=== PATIENT | female | born 1970 | race African-American/Black ===

== ENCOUNTER 2019-07-17 00:42 | Day surgery (SDC) | payer BC, SELFPAY ==
--- NOTE | 2019-07-16 08:36 | PM.IMHP ---
H&P: HPI History of Present Illness Chief complaint: Right Rotator Cuff Tear Narrative: Presents with Right shoulder pain Dominant hand: right Current symptoms: Reports stiffness and weakness Character: constant Onset: 1-3 months *Chief Complaint Chief Complaint: see Reason for Visit (Right Shoulder ) Duration: months Severity: moderate Exacerbating/relieving factors: relieving factors: (Ice,Rest, NSAIDS ) Review of Systems Review of Systems: All systems reviewed & are unremarkable except as noted in HPI and below Constitutional: Constitutional: Denies headache(s) and Denies weakness Eyes: Eyes: Denies blurry vision, Denies change in vision and Denies loss of vision ENT: Denies dizziness, Denies dry mouth, Denies headache(s) and Denies nasal congestion Cardiovascular: Cardiovascular: Denies chest pain, Denies syncope, Denies leg edema and Denies dyspnea on exertion Respiratory: Respiratory: Denies cough and Denies dyspnea on exertion Gastrointestinal: Gastrointestinal: Denies abdominal pain, Denies constipation and Denies diarrhea Genitourinary: Genitourinary: Denies urinary frequency Musculoskeletal: Musculoskeletal: Reports as per HPI and Denies numbness Integumentary/Breasts: Skin/Breast: Reports system reviewed and no additional complaints, except as docu Neurologic: Denies dizziness, Denies syncope, Denies headache(s), Denies loss of vision, Denies numbness and Denies weakness Psychiatric: Psychiatric: Reports no additional psychiatric complaints Endocrine: Endocrine: Reports no additional endocrine complaints Hematologic/Lymphatic: Hematologic/Lymphatic: Reports no additional hematologic/lymphatic complaints COUNT INCLUDES THE [facility] Social History Social History Alcohol intake: current Meds Home Medications and Allergies Allergies Allergy/AdvReac Type Severity Reaction Status Date / Time No Known Allergies Allergy Unverified 05/11/19 13:01 Exam Narrative: Exam Narrative: Extrem Right upper extremity: normal to inspection, normal capillary refill, shoulder/upper arm (smooth rom. ) normal to inspection, tenderness, axillary nerve sensory function normal and abnormal ROM (rom RR 0 TO 160 DEG ABD 0 TO 160 DEG), elbow/forearm normal to inspection and hand normal to inspection and neuromotor exam normal; No cyanosis, edema or no joint enlargement Other: Shoulder exam Right Anterior apprehension negative Right relocation negative Right Anterior translation negative Right Posterior translation negative Right Inferior translation negative Left Anterior apprehension negative Left relocation negative Left Anterior translation negative Left Posterior translation negative Left Inferior translation negative Right positive Michelle's Right negative SLAP Right negative speed's test Righ negative yergason's Right negative belly press Right positive tellez Right positive cross body Right negative lift off test Right positive Neer's Left negative tellez Left negativge cross body Left negative lift off test Left negative Neer's Assessment and Plan Additional Plan FAVIOLA WAS SEEN FOR FOLLOW-UP FOR HER RIGHT SHOULDER ROTATOR CUFF PARTIAL TEAR SHE IS DOING ABOUT THE SAME AND SHE IS NOT IMPROVING WITH CONSERVATIVE TREATMENT. ACTUALLY SHE THINKS HER PAIN IS WORSE. ON EXAM SHE HAS CONTINUED TENDERNESS OVER THE GREATER TUBEROSITY AND SHE HAS PAIN WITH RESISTED ABDUCTION AND FORWARD FLEXION AND INTERNAL ROTATION. SHE IS NOT WANTING TO DO ANY OTHER FORMS OF CONSERVATIVE TREATMENT SHOULD WOULD LIKE TO GO AHEAD AND PROCEED WITH RIGHT ROTATOR CUFF REPAIR. WE HAD A LONG DISCUSSION REGARDING SURGERY INCLUDING THE POTENTIAL COMPLICATIONS AND RISKS. HE MAINLY SPOKE ABOUT RECURRENT TEAR INFECTION DVT PULMONARY EMBOLUS AND THE NEED FOR RECURRENT SURGERY. SHE WOULD LIKE TO GO AHEAD SCHEDULE RIGHT ROTATOR CUFF REPAIR.
[2019-07-16 10:13] VITALS: BMI 25.8
[2019-07-17] VITALS (8 sets, daily range): BP systolic 142–178; BP diastolic 84–99; PULSE 57–89; RESP 16–20; TEMP 36.2–37; O2SAT 96–100
--- NOTE | 2019-07-17 07:36 | WPDHPUPDATE1 ---
History and Physical Update Update Date/Time: 07/17/19 07:36 History and Physical has been reviewed, including an updated exam of the patient. There are NO changes in the patient's condition. Risks, benefits, and alternatives have been discussed and questions answered. Patient agrees to proceed with procedure.
[2019-07-17] MEDS: CELECOXIB 200 MG CAPSULE PO (08:20)
[2019-07-17] MEDS: LACTATED RINGERS 1,000 ML 30 ML IV CONT ×2 (08:25→11:52)
--- NOTE | 2019-07-17 08:52 | WPDANESEPPF ---
Anes - Initial Pre Proc Eval Procedure: Operation Date: 07/17/19 10:00 Proposed Procedures p Right Rotator Cuff Repair - Trevon Correa MD Date/Time: 07/17/19 08:52 Surgeon: Trevon Correa MD Pre Op Diagnosis: Right Rotator Cuff Tear Patient Data Age: 48 Gender: F Height: 1.68 m Weight: 70.8 kg Last Vital Signs Temp 37.0 C 07/17/19 08:08 Pulse 65 07/17/19 08:08 Resp 18 07/17/19 08:08 BP 155/84 H 07/17/19 08:08 Pulse Ox 100 07/17/19 08:08 Allergies Allergy/AdvReac Type Severity Reaction Status Date / Time No Known Allergies Allergy Unverified 07/17/19 08:27 Home Medications Medication Instructions Recorded Confirmed Type multivitamin 1 tablet PO DAILY 07/16/19 07/17/19 History omega 1-sda-ntg-fish oil [Fish Oil] 1 cap PO DAILY 07/16/19 07/17/19 History ferrous sulfate 27 mg PO DAILY 07/17/19 07/17/19 History vitamin B complex [B 1 tablet PO DAILY 07/17/19 07/17/19 History Complex-Vitamin B12] Patient hx anesthesia problems: none Family hx anesthesia problems: none PMFSH Social History Social History Alcohol intake: current Anes - Eval Final PreProcedure Day of Procedure 07/17/19 08:52 Patient weight: normal Heart: regular rate and rhythm Lungs: clear to auscultation and normal air movement Airway: Mallampati scale class II Neurological: alert and oriented Last oral intake: >/= 8 hours ASA classification: I Emergent: no Anesthetic plan: proceed Anesthesia type and monitoring: general ETT and standard monitoring Informed Consent: The patient's anesthetic plan and its attendant risks and benefits were discussed with the patient/family/POA. Questions were solicited and answers provided to the satisfaction of the patient/family/POA.
--- NOTE | 2019-07-17 08:53 | WPDANESPNB ---
Anes - Peripheral Nerve Block Date/Time: 07/17/19 08:53 I have discussed with the patient/family/POA the placement of a peripheral nerve block for post-operative pain management, including associated risks, benefits, complications, and side effects. Alternative methods of post-operative analgesia were detailed. Questions were solicited and answers provided to the satisfaction of the patient/family/POA. Time-Out: A pre-procedural Time-Out was completed immediately before starting the procedure and confirmed: Patient Identification, Site, Procedure, Patient Position and the Availability of Requisite Equipment. Clinical Indications: Acute post-operative pain management requested by the operative surgeon. Nerve Block Insertion Note Anes-nerve block: interscalene right Patient position: supine Skin prep: chlorhexidine Needle: 22 gauge, stimulating, insulated echogenic needle. Needle length: 50 mm Technique: ultrasound Injectate: bupivacaine 0.5% with epi 5 mcg/ml (30cc) Observations: tolerated well Complications: none
[2019-07-17] MEDS: ceFAZolin 2 GM/D5W 50 ML 2 GM/50 ML BAG IVPB (10:23)
--- NOTE | 2019-07-17 11:34 | SUR.OPER ---
EBL 10CC
--- NOTE | 2019-07-17 11:41 | PM.OP ---
Procedure Note - Brief Procedure Note - Brief Date of procedure: 07/17/19 Pre-op diagnosis: Right Rotator Cuff Tear Post-op diagnosis: same Procedure performed: REPAIR OF RIGHT ROTATOR CUFF Anesthesia: GETA Surgeon: Trevon Correa MD Estimated blood loss (mL): 20 Complications: No immediate complications Condition: stable Disposition: PACU
[2019-07-17] MEDS: ONDANSETRON INJ 4 MG/2 ML VIAL IV PUSH (12:19)
--- NOTE | 2019-07-17 12:19 | SUR.PHASEI ---
1218; PT C/O NAUSEA. ZOFRAN GIVEN IV.
--- NOTE | 2019-07-17 12:31 | SUR.PHASEI ---
1231; PT STATES RELIEF OF NAUSEA
--- NOTE | 2019-07-17 12:39 | SUR.PHASEI ---
1238; DR GARCIA NOTIFIED OF PT'S BP. 150-160/90'S. NO NEW ORDERS.
--- NOTE | 2019-07-17 13:24 | OP_ITS ---
DATE OF PROCEDURE: 07/17/2019 PREOPERATIVE DIAGNOSIS: Right rotator cuff tear. POSTOPERATIVE DIAGNOSIS: Right rotator cuff tear. PROCEDURES: Repair of right rotator cuff. ANESTHESIA: General. COMPLICATIONS: None. INDICATIONS: This is a 48-year-old female who failed nonoperative treatment for her right partial rotator cuff tear. She was indicated for repair of right rotator cuff. DESCRIPTION OF PROCEDURE: The patient was taken to the operating room in stable condition and placed in supine position. General anesthesia was induced and then she was placed in the beach chair position and the right upper extremity was prepped and draped sterilely from the fingers to the axillary and cervical region. An incision was made over the anterolateral acromion down to the subcutaneous tissues. The deltoid was identified. A mini-open incision was made through the deltoid muscle exposing the subacromial space. The greater tuberosity than was palpated, and then was exposed and then the bursa was removed from the subdeltoid region, and then also some scar tissue was removed with digital adhesiolysis and manipulation until there was good space underneath the acromion and no more scar tissue, and then the greater tuberosity was identified and the insertion of the rotator cuff was identified and there was a greater than 50% tear to the rotator cuff in that region. So, the greater tuberosity was debrided as was the insertion of the cuff and the remaining fibers and there was good bleeding bone, and then one 5.5 Arthrex suture anchor was placed and FiberWire was used to repair the tear. A very minimal subacromial decompression was performed, and then the shoulder was taken through range of motion. There was no impingement of the tear from the acromion. The wound was irrigated thoroughly. The deltoid muscle was repaired with 2-0 FiberWire and 0 Vicryl suture. Subcutaneous tissues with 2-0 Vicryl and then subcuticular stitch was used with a 3-0 Quill approximate to skin edges. Dermabond was placed. Sterile dressing was applied. Then, a sling was applied. The patient was extubated and sent to recovery. Smita I MT: Tono
== END 2019-07-17 13:55 | disposition home or self-care (01) ==
PROVIDERS: PCP Emergency Medicine; Visit Provider Orthopaedic Surgery
PROC: (CPT 23420; principal; 2019-07-17 10:00)
DX: M75.101 Unspecified rotator cuff tear or rupture of right shoulder, not specified as traumatic (principal); G89.18 Other acute postprocedural pain
CPT/HCPCS: 23412; 64415; A9270; C1713; J0330; J0690; J1100; J2250; J2370; J2405; J3010; J7120

== ENCOUNTER 2020-03-20 13:41 | Outpatient (CLI) | payer BC, SELFPAY ==
--- NOTE | 2020-03-20 13:50 | ECG_ITS ---
Measurements Intervals [place] Rate: 70 P: 11 [place]: 162 QRS: 57 QRSD: 74 T: 67 QT: 352 QTc: 381 Interpretive Statements SINUS RHYTHM BORDERLINE T WAVE ABNORMALITY- ANTERIOR LEADS BORDERLINE ECG Electronically Signed On 03-20-2020 14:47:16 CDT by Franky Choe D.O.
== END 2020-03-20 13:42 | disposition home or self-care (01) ==
LOC: ANHCARD 13:44
PROVIDERS: PCP Emergency Medicine; Visit Provider Emergency Medicine
DX: R07.89 Other chest pain (principal)
CPT/HCPCS: 93005

== ENCOUNTER 2020-04-01 10:14 | Outpatient (CLI) | payer BC, SELFPAY ==
--- NOTE | ~2020-04-01 | XR_ITS ---
XR lumbar spine 2-3V DATE: 04/01/2020 10:42 INDICATION: Back pain, left leg pain and numbness TECHNIQUE: AP, lateral, coned lateral lumbosacral views COMPARISON: None FINDINGS: There is a transitional fifth lumbar vertebra with sacralization pseudoarthrosis on the lef t. This may be a source of chronic low back pain. No fracture or bone destruction or spondylolisthesis is evident. The included lower thoracic and lumb ar pedicles are intact. Lumbar and lumbosacral interspaces are well preserved. The sacroiliac joints appear normal. 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 IMPRESSION: Transitional fifth lumbar vertebra with sacralization and pseudoart hrosis on the left
== END 2020-04-01 10:15 | disposition home or self-care (01) ==
LOC: ANHIMG 10:19
PROVIDERS: PCP Emergency Medicine; Visit Provider Emergency Medicine
DX: M54.9 Dorsalgia, unspecified (principal)
CPT/HCPCS: 72100

== ENCOUNTER 2021-04-10 10:06 | Outpatient (CLI) | payer BC, SELFPAY ==
[2021-04-10 10:58] LABS: Alanine Aminotransferase 21 U/L (4-35); Albumin Level 4.4 g/dL (3.5-5.1); Alkaline Phosphatase 98 U/L (38-126); Anion Gap 8 mmol/L (8-16); Aspartate Amino Transferase 25 U/L (14-36); Bilirubin,Total 0.4 mg/dL (0.2-1.3); Blood Urea Nitrogen 16 mg/dL (7-17); Calcium 9.4 mg/dL (8.4-10.2); Carbon Dioxide 25 mmol/L (22-30); Chloride 107 mmol/L (98-107); Cholesterol 270 mg/dL (0-200); Estimated Glomerular Filt Rate > 60; Glucose 93 mg/dL (65-110); HDL Direct 102 mg/dL; Potassium 4.2 mmol/L (3.4-5.0); Sodium 140 mmol/L (137-145); Triglycerides 46 mg/dL (<150)
[2021-04-10 11:04] LABS: Rheumatoid Factor < 8.6 IU/ML (<12)
[2021-04-10 11:09] LABS: LDL Cholesterol Direct 127 mg/dL
[2021-04-10 11:26] LABS: Thyroid Stimulating Hormone 0.529 uIU/mL (0.465-4.680)
[2021-04-15 01:42] LABS: Vitamin D 1,25 (OH)2 Total 38 pg/mL (18-72); Vitamin D2 1,25 (OH)2 <8 pg/mL; Vitamin D3 1,25 (OH)2 38 pg/mL
== END 2021-04-10 10:07 | disposition home or self-care (01) ==
LOC: ANHLAB 10:11
PROVIDERS: PCP Emergency Medicine; Visit Provider Emergency Medicine
DX: Z13.220 Encounter for screening for lipoid disorders (principal); R53.83 Other fatigue; E56.9 Vitamin deficiency, unspecified
CPT/HCPCS: 36415; 80053; 80061; 82652; 84443; 86038; 86430

== ENCOUNTER 2022-03-01 11:38 | Outpatient (CLI) | payer BC, SELFPAY ==
[2022-03-01 12:15] LABS: Basophils Absolute Auto 0.1 K/mm3 (0.0-0.1); Basophils Percent Auto 1.6 % (0.2-1.2); Eosinophils Absolute Auto 0.1 K/mm3 (0-0.3); Eosinophils Percent Auto 2.1 % (0-4.4); Hematocrit 41.8 % (37.0-47.0); Immature Granulocyte Absolute 0.01 K/mm3 (0.00-0.031); Immature Granulocyte Percent A 0.3 % (0-0.5); Lymphocytes Absolute Auto 1.63 K/mm3 (0.9-3.2); Lymphocytes Percent Auto 42.8 % (18.3-44.2); Mean Corpuscular HGB Conc 31.1 g/dl (32-36); Mean Corpuscular Hemoglobin 26.7 pg (26-34); Mean Platelet Volume 10.4 fl (7.4-10.4); Monocytes Absolute Auto 0.3 K/mm3 (0.1-0.6); Monocytes Percent Auto 8.1 % (2.6-8.5); Neutrophils Absolute Auto 1.7 K/mm3 (1.3-6.7); Neutrophils Percent Auto 45.1 % (45.5-73.1); Platelet Count Result 224 k/mm3 (150-375); Red Blood Count 4.86 M/mm3 (4.2-5.4); Red Cell Distribution Width 13.3 % (11.5-14.5); White Blood Count 3.8 K/mm3 (4.5-10.0)
[2022-03-01 12:29] LABS: Alanine Aminotransferase 20 U/L (6-35); Albumin Level 4.8 g/dL (3.5-5.1); Alkaline Phosphatase 94 U/L (38-126); Anion Gap 15 mmol/L (8-16); Aspartate Amino Transferase 26 U/L (14-36); Bilirubin,Total 0.7 mg/dL (0.2-1.3); Blood Urea Nitrogen 12 mg/dL (7-17); Calcium 9.4 mg/dL (8.4-10.2); Carbon Dioxide 23 mmol/L (22-30); Chloride 106 mmol/L (98-107); Cholesterol 277 mg/dL (0-200); Estimated Glomerular Filt Rate > 60; Glucose 96 mg/dL (65-110); HDL Direct 72 mg/dL; Potassium 4.5 mmol/L (3.4-5.0); Sodium 144 mmol/L (137-145); Triglycerides 85 mg/dL (<150)
[2022-03-01 12:40] LABS: LDL Cholesterol Direct 131 mg/dL
[2022-03-01 13:00] LABS: Thyroid Stimulating Hormone 0.621 uIU/mL (0.465-4.680)
[2022-03-05 00:04] LABS: Vitamin D 1,25 (OH)2 Total 53 pg/mL (18-72); Vitamin D2 1,25 (OH)2 <8 pg/mL; Vitamin D3 1,25 (OH)2 53 pg/mL
== END 2022-03-01 11:39 | disposition home or self-care (01) ==
PROVIDERS: PCP Emergency Medicine; Visit Provider Emergency Medicine
DX: R53.83 Other fatigue (principal); E56.9 Vitamin deficiency, unspecified; N28.9 Disorder of kidney and ureter, unspecified
CPT/HCPCS: 36415; 80053; 80061; 82652; 84443; 85025

== ENCOUNTER 2024-05-17 15:23 | Outpatient (CLI) | payer BC, SELFPAY ==
--- NOTE | ~2024-05-17 | MM_ITS ---
EXAMINATION: MM screening kacey BI w flakito HISTORY: Screening TECHNIQUE: Craniocaudal and mediolateral oblique 3-D tomosynthesis images were obtained and synthetic 2-D images were generated. CAD analysis was submitted and interpreted. COMPARISON: Comparison to multiple prior studies sequentially, with oldest reviewed study dated 02/21. BREAST PARENCHYMAL COMPOSITION: Not dense: There are scattered areas of fibroglandular density. FINDINGS: There is no evidence of suspicious mass, calcification, or architectural distortion to sugg est malignancy in either breast. There has been no suspicious interval change. IMPRESSION: 1. No mammographic evidence of malignancy. 2. Recommend routine screening mammography in one year. BI-RADS Category 1: Negative Reviewed, dictated and finalized at location B. [employer]IST
== END 2024-05-17 15:24 | disposition home or self-care (01) ==
LOC: ANHIMG 15:24
PROVIDERS: PCP Emergency Medicine; Visit Provider Obstetrics & Gynecology
DX: Z12.31 Encounter for screening mammogram for malignant neoplasm of breast (principal)
CPT/HCPCS: 77063; 77067